=== PATIENT | female | born 1995 | race Caucasian/White ===

== ENCOUNTER 2016-10-09 17:01 | Emergency (ER) | payer OTHER ==
[~2016-10-09] VITALS: Ht 172.7 cm; Wt 73.0 kg
[2016-10-09] MEDS ORDERED: PRENATAL TABLE1 EAC3 PO (17:23)
[2016-10-09 17:42] LABS: HEMATOCRIT 42.5 % (36.0-46.0); MCH 29.1 PG (29.0-34.0); MCHC 34.4 G/DL (30.0-36.0); MCV 84.7 FL (83-99); MEAN PLAT.VOLUME 10.1 uM^3 (9.5-12.4); PLATELET COUNT 246 K/uL (156-360); RBC DIS.WIDTH-CV 11.9 % (11.8-14.6); RBC DIS.WIDTH-SD 36.2 % (39-53); RED BLOOD COUNT 5.02 M/uL (3.80-5.20); WHITE BLOOD COUNT 7.8 K/uL (4.1-10.2)
[2016-10-09 17:44] LABS: CHLORIDE 107 mEq/L (99-109); POTASSIUM 3.9 mEq/L (3.7-5.4); SODIUM 142 mEq/L (136-147)
[2016-10-09 17:47] LABS: GLUCOSE 103 mg/dL (70-99)
[2016-10-09 17:48] LABS: ANION GAP 12 MEQ/L (2-14)
[2016-10-09 17:49] LABS: TOTAL BILIRUBIN 0.4 mg/dL (0.0-1.0)
[2016-10-09 17:50] LABS: ALKALINE PHOSPHATASE 68 IU/L (3-129)
[2016-10-09 17:51] LABS: UREA NITROGEN (BUN) 8 mg/dL (9-23)
[2016-10-09 17:59] LABS: QUANTITATIVE HCG 6073.8 MIU/ML
[2016-10-09 18:03] LABS: GFR ESTIMATE (CALCULATED) > 59 mL/min/
[2016-10-09 21:37] VITALS: BP 104/93
== END 2016-10-09 21:39 | disposition home or self-care (01) ==
LOC: EME 17:01
PROVIDERS: Emergency Medicine
DX: O03.9 Complete or unspecified spontaneous abortion without complication (principal); F17.200 Nicotine dependence, unspecified, uncomplicated
CPT/HCPCS: 76801; 80053; 84702; 85027; 99281; 99284